=== PATIENT | female | born 1960 | race Caucasian/White ===

== ENCOUNTER 2022-04-15 15:41 | Observation (INO) | payer MEDICARE, SELFPAY ==
[2022-04-15] VITALS (18 sets, daily range): BP systolic 102–162; BP diastolic 57–90; PULSE 62–94; RESP 11–29; TEMP 36.6–37.6; O2SAT 92–100; BMI 20.9
--- NOTE | 2022-04-15 | XR_ITS ---
WS: [id number] Right calcaneus, C-arm fluoroscopy, 04/15/2022 Clinical Data: orif right calcaneus, or pic Comparison: Right ankle, 04/15/2022 Findings: There are 2 orthopedic screws in the posterior right calcaneus reducing a comminuted displaced fractu re. The superior portion of the calcaneus is now aligned with the body of the calcaneus. XR/XR calcaneus RT min 2V 86610 Impression: Internal fixation of comminuted right calcaneal fracture.
--- NOTE | 2022-04-15 | SCC_ITS ---
Procedure done: Open reduction internal fixation right calcaneus CPT 49037 216 seconds of fluoroscopic guidance, for a cumulative dose of 4.8 mGy, was provided to Dr. Gifford by the radiology department. C-arm images of the RIGHT calcaneus were saved for the patient's permanent record. [facility]
--- NOTE | 2022-04-15 15:43 | XR_ITS ---
WS: [id number] Right ankle, 4 views, 04/15/2022 Clinical Data: pain/swelling Comparison: None. Findings: There is a comminuted fracture of the right calcaneus. The superior portion of the pelvis is retracte d superiorly from the inferior portion biopolar the Achilles tendon. The ankle mortise is intact. The distal tibia and fibula are unremarkable. XR/XR ankle RT min 3V* [id number] Impression: Comminuted right calcaneal fracture.
--- NOTE | 2022-04-15 15:44 | ED_ITS ---
HPI - Extremity Injury (Lower) General: Chief Complaint: Fall Stated Complaint: FALL Time Seen by Provider: 04/15/22 15:42 Source: patient Mode of arrival: ambulatory History of Present Illness: 61-year-old female presents emergency room via EMS she was standing on a countertop she slipped and fell and landed on the right foot she has an ankle deformity with swelling posteriorly and severe pain. Denies any other injuries denies striking her head denies loss of consciousness. She has not eaten since yesterday she does not take any anticoagulants no significant past medical problems no history of coronary artery disease stroke or diabetes. MD complaint: ankle injury Onset (ago): minute(s) Type of Injury: inversion Severity: moderate Relieving factors: immobilization Exacerbating factors: movement and palpation Context: fall Associated symptoms: Reports inability to bear weight and swelling; Deny numbness or tingling Other symptoms: none Review of Systems Const: Denies: fever(s), chills, body aches, change in appetite, fatigue or malaise ENMT: Denies: throat pain, ear or mastoid pain, nasal discharge or nasal congestion Card: Denies: chest pain, edema, dyspnea on exertion or orthopnea Resp: Denies: dyspnea, productive cough or non-productive cough GI: Denies: abdominal pain, nausea, vomiting, hematemesis, coffee ground emesis, diarrhea, constipation, bloating, hematochezia or melena : Denies: flank pain, difficulty voiding, dysuria, urinary frequency or urinary urgency Musc: Reports: joint pain and joint swelling Skin/Breast: Denies: rash or pruritus [facility] ED PFSH: Medical History (Updated 04/15/22 @ 16:50 by Tolu Manrique DO) No significant past medical history Surgical History (Updated 04/15/22 @ 15:46 by Tolu Manrique DO) No pertinent past surgical history Physical Exam Const: COMMON NORMALS: no acute distress GENERAL APPEARANCE: cooperative and comfortable ORIENTATION/CONSCIOUSNESS: Yes awake, Yes oriented to person, Yes oriented to place and Yes oriented to time HENMT: COMMON NORMALS: normocephalic, atraumatic and hearing grossly normal bilaterally HEAD & SCALP: normocephalic and atraumatic Resp: COMMON NORMALS: normal respiratory effort, No retractions, No use of accessory muscles and clear to auscultation bilaterally AUSCULTATION: clear to auscultation bilaterally Cardio: COMMON NORMALS: regular rate, regular rhythm and No murmurs present (Cardio) RATE: regular rate RHYTHM: regular rhythm GI: COMMON NORMALS: Soft to palpation and No hepatosplenomegaly present AUSCULTATION: Yes normoactive bowel sounds PALPATION: Yes Soft to palpation, No Tenderness to palpation present (GI), No Guarding due to palpation present (GI) and Yes No hepatosplenomegaly present Extremity: OTHER: Swelling and right ankle particularly laterally. Dorsalis pedis posterior tibialis pulses present normal sensation normal. Neuro: SENSORIUM/ORIENTATION: Yes oriented to person, Yes oriented to place and Yes oriented to time Skin: COMMON NORMALS: no rashes or lesions noted GENERAL SKIN EXAM: no rashes or lesions noted Course Vital Signs: Vital signs: Vital Signs Pulse Rate 75 04/15/22 15:43 Respiratory Rate 18 04/15/22 16:24 Blood Pressure 104/58 04/15/22 15:43 Pulse Oximetry 97 04/15/22 16:24 Oxygen Delivery Me thod 04/15/22 15:43 MDM - Extremity Injury (Lower) Medical Decision Making Sniffing and calcaneal fracture with distraction of the posterior fracture segment. Discussed with Dr. Palmer. He is on-call. He was transitioning off call Dr. Donahue is going to cover. Dr. Reilly's been to the department seen the patient there she has not eaten since noon and they are planning on take her to the operating room I talked Dr. Sultana who will admit the patient. Medical Records I reviewed the patient's medical records. Lab Data I reviewed the patient's lab results. Radiology Impressions Ankle X-Ray 04/15/22 15:43 Impression: Comminuted right calcaneal fracture. Discharge Plan Discharge Patient Disposition: Admitted As Inpatient Clinical Impression: Calcaneal fracture Condition: Stable Prescriptions: No Action No Known Home Medications Coding Level of Care Code ED Choir Accompanist for Chg Fwd Exam Detailed
[2022-04-15] MEDS: promethazine 25 mg/mL SDV 1 mL IM (16:04)
[2022-04-15] MEDS: morphine 4 mg/mL SDV 1 mL 6 MG IVP (16:04)
[2022-04-15] MEDS: midazolam 1 mg/mL INJ 2 mL IVP (16:24)
[2022-04-15] MEDS: morphine 4 mg/mL SDV 1 mL IVP (16:24)
[2022-04-15] MEDS: orphenadrine 30 mg/mL Inj 2 mL 60 MG IVP (16:25)
--- NOTE | 2022-04-15 16:27 | P.HP_ITS ---
Providers/Chief Complaint Chief Complaint: FALL History of Present Illness Valeria Eduardo is a 61 year old female with no significant PMH was after she experinced a fall at home, according to the patient she slipped from the kitchen countertop and landed on floor,it appears to be a mechanical fall,she denied any headache, dizziness, chest pain, sob,prior to the episode. Xray rt ankle done in the ER showed : Comminuted right calcaneal fracture Her vitals have been been reviewed. Labs are pending Currently she is going to OR for intervention. Review of Systems General: Reports: 10 or more systems reviewed and unremarkable except in HPI and below Const: Denies: fever(s), chills, body aches, change in appetite or diaphoresis Card: Denies: palpitations, edema, swelling of feet/ankles, dyspnea on exertion, orthopnea or leg pain with exertion Resp: Denies: dyspnea, productive cough, wheezing or pain on inspiration GI: Denies: abdominal pain, nausea, vomiting, diarrhea or constipation : Denies: flank pain Musc: Reports: extremity pain and extremity swelling; Denies: back pain Neuro: Reports: difficulty walking; Denies: headache(s) or confusion Medications/Allergies Home Medications Medication Instructions Recorded Confirmed Last Taken Type alprazolam 0.5 mg tablet 0.5 mg PO DAILY PRN Anxiety 04/15/22 04/15/22 Unknown History gabapentin 800 mg tablet 800 mg PO TID 04/15/22 04/15/22 Unknown History venlafaxine 75 mg capsule,extended 75 mg PO BID 04/15/22 04/15/22 Unknown History release 24 hr hydrocodone 7.5 mg-acetaminophen 1 tab PO Q8H PRN pain 7 days #21 04/16/22 Unknown Rx 325 mg tablet tabs Allergies Allergy/AdvReac Type Severity Reaction Status Date / Time amoxicillin Allergy ALGY-Anaphy Verified 04/15/22 18:01 laxis clindamycin Allergy ADR-Diarrhe Verified 04/15/22 18:01 a Penicillins Allergy ALGY-Anaphy Verified 04/15/22 18:01 laxis PFSH Acute PFSH: Medical History (Updated 04/15/22 @ 17:11 by Tray Gifford DPM) No significant past medical history Surgical History (Updated 04/15/22 @ 15:46 by Tolu Manrique DO) No pertinent past surgical history Vitals/I&O/Wt Last Vital Signs Pulse 75 04/15/22 15:43 Resp 18 04/15/22 16:24 BP 104/58 04/15/22 15:43 Pulse Ox 97 04/15/22 16:24 O2 Del Method 04/15/22 15:43 Weight last 48 hrs Weight 61.235 kg Physical Exam Const: COMMON NORMALS: patient oriented x3 HENMT: COMMON NORMALS: normocephalic and atraumatic HEAD & SCALP: normocephalic and atraumatic Resp: COMMON NORMALS: clear to auscultation bilaterally AUSCULTATION: clear to auscultation bilaterally Cardio: COMMON NORMALS: regular rate, regular rhythm, S1 normal heart sound present, S2 normal heart sound present, No gallops present (Cardio), No murmurs present (Cardio), No rub (Cardio) and Peripheral pulses 2+ throughout RATE: regular rate RHYTHM: regular rhythm HEART SOUNDS: S1 normal heart sound present and S2 normal heart sound present PERIPHERAL PULSES: Peripheral pulses 2+ throughout GI: COMMON NORMALS: Normal to inspection, nondistended, normoactive bowel sounds present, Soft to palpation, non-tender, No hepatosplenomegaly present and no masses AUSCULTATION: Yes normoactive bowel sounds PALPATION: Yes Soft to palpation and Yes No hepatosplenomegaly present RECTAL EXAM: deferred Extremity: COMMON NORMALS: no clubbing, cyanosis or edema and no pedal edema Neuro: COMMON NORMALS: patient oriented x3 Data : 04/16/22 02:45 04/16/22 02:45 A&P Assessment and plan (1) Closed right calcaneal fracture: Plan Valeria Eduardo is a 61 year old female with no significant PMH was after she experinced a fall at home, according to the patient she slipped from the kitchen countertop and landed on floor,it appears to be a mechanical fall,she denied any headache, dizziness, chest pain, sob,prior to the episode. Assesment : Closed RT Calcaneal Fracture Plan : Pain Control Bowel Regimen DVT PPX: On lovenox as well as SCDS Code Status :Full code Attestations Medical Necessity Statement*: Patient needs to be in hospital for the management of calcaneal fracture. Anticipated LOS Greater then 2 midnights. Coding Level of Care Code Acute Afloat Cryptologic Manager for g Fwd Exam Detailed Diagnoses Closed right calcaneal fracture S92.001A
--- NOTE | 2022-04-15 16:46 | ECG_ITS ---
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 Measurements Intervals [place] Rate: 84 P: 75 IL: 144 QRS: 76 QRSD: 86 T: 68 QT: 367 QTc: 436 Interpretive Statements SINUS RHYTHM POSSIBLE LEFT ATRIAL ENLARGEMENT [-0.1mV P-WAVE IN V1/V2] No previous ECG available for comparison Electronically Signed On 04-16-2022 5:27:33 HIGH LIFT OPERATOR by Emy Guerra M.D. [email or web address] memorial [email or web address] [id number]
--- NOTE | 2022-04-15 17:06 | P.CONIM_ITS ---
Providers/Reason For Consult Consulting Physician/Specialty*: Podiatry Reason for Consult*: Right foot calcaneus tongue type fracture Attending Physician: Dr. Tray Gifford, D.P.M. History of Present Illness History of Present Illness Valeria Eduardo is a 61 year old female who presented to the emergency department this afternoon after sustaining a fall from her countertop. Patient standing on the countertop when she slipped and fell. When she landed she had immediate onset of pain to the right ankle and heel. She was transported to the emergency department via EMS where x-rays were obtained and she was found to have a right calcaneus tongue type fracture. Podiatry was consulted for further treatment and evaluation. History is obtained through chart review as patient had received pain medication in the emergency department which inhibited history taking from the patient. Patient is not on any blood thinners. She does not take any regular NSAIDs. No constitutional symptoms. No other pedal complaints at this time. Review of Systems General: Reports: 10 or more systems reviewed and unremarkable except in HPI and below Const: Denies: fever(s), chills or fatigue Eyes: Denies: change in vision ENMT: Denies: sinus pain Card: Denies: chest pain, palpitations or lightheadedness Resp: Denies: dyspnea GI: Denies: abdominal pain, nausea or vomiting Musc: Reports: extremity pain, extremity swelling and limited range of motion; Denies: neck pain or back pain Skin/Breast: Reports: skin swelling Neuro: Denies: numbness in extremities Medications/Allergies Home Medications Medication Instructions Recorded Confirmed Last Taken Type alprazolam 0.5 mg tablet 0.5 mg PO DAILY PRN Anxiety 04/15/22 04/15/22 Unknown History gabapentin 800 mg tablet 800 mg PO TID 04/15/22 04/15/22 Unknown History venlafaxine 75 mg capsule,extended 75 mg PO BID 04/15/22 04/15/22 Unknown History release 24 hr Allergies Allergy/AdvReac Type Severity Reaction Status Date / Time amoxicillin Allergy ALGY-Anaphy Verified 04/15/22 18:01 laxis clindamycin Allergy ADR-Diarrhe Verified 04/15/22 18:01 a Penicillins Allergy ALGY-Anaphy Verified 04/15/22 18:01 laxis PFSH Acute PFSH: Medical History (Updated 04/15/22 @ 17:11 by Tray Gifford DPM) No significant past medical history Surgical History (Updated 04/15/22 @ 15:46 by Tolu Manrique DO) No pertinent past surgical history Vitals/I&O/Wt Last Vital Signs Pulse 75 04/15/22 15:43 Resp 18 04/15/22 16:24 BP 104/58 04/15/22 15:43 Pulse Ox 97 04/15/22 16:24 O2 Del Method 04/15/22 15:43 Weight last 48 hrs Weight 135 lb Physical Exam Narrative: GENERAL: A&O x 3 VASCULAR: DP/PT pulses palpable 2/4 with CFT intact, <3seconds to distal digits. Blanching posterior right heel with tenting of the skin noted from posterior calcaneus fragment DERMATOLOGICAL: Skin turgor and temperature is within normal limits. Right posterior calcaneus shows centralized area of blanching and tenting of the skin from posterior calcaneal fragment MUSCULOSKELETAL: Exquisite tenderness with palpation of right posterior heel. Muscle strength testing deferred secondary to posttraumatic state. Visible ten ting of the posterior heel of the right foot NEUROLOGICAL: Neurological sensation to the affected foot and ankle is present through L4-S1 dermatomes with no hyper/hypoesthesias, negative Tinel or Amna leix's sign IMAGIN 3 view x-rays of the right ankle and Calc axial view of the right calcaneus were taken in the emergency department and personally interpreted by me which show tongue type calcaneal fracture which is tenting the posterior skin envelope. 2 cm displacement of superior calcaneal fragment. No other fractures or dislocations noted Resp: COMMON NORMALS: normal respiratory effort and clear to auscultation bilaterally AUSCULTATION: clear to auscultation bilaterally Cardio: COMMON NORMALS: regular rate, regular rhythm, S1 normal heart sound present and S2 normal heart sound present RATE: regular rate RHYTHM: regular rhythm HEART SOUNDS: S1 normal heart sound present and S2 normal heart sound present A&P Assessment and plan (1) Closed right calcaneal fracture: (2) Pain of right foot: Plan -Patient was seen and evaluated in the emergency department -Right foot tongue type calcaneal fracture with tenting of the skin and soft tissue compromise -Labs and vitals reviewed -Diet: N.p.o. for procedure -Plan for right calcaneus open reduction internal fixation for this evening 04/15/2022 -Patient will be staying overnight as inpatient with likely discharge tomorrow morning -Strict nonweightbearing to right lower extremity using crutches/walker -Patient will need crutches prior to discharge -Podiatry will round on patient tomorrow morning to assess postoperative status and provide further recommendations for discharge Coding Level of Care Code Acute Orange Picking Supervisor for Jennifer Fwd Exam Expanded Problem Focused Diagnoses Closed right calcaneal fracture S92.001A Pain of right foot M79.671
[2022-04-15] MEDS: sodium chloride 0.9% 1,000 ML 30 ML IV (18:33)
--- NOTE | 2022-04-15 18:35 | PC.NURSE ---
DR. STEELE NOTIFIED OF HOLDING LOVENOX INJECTION UNTIL AFTER SURGERY
[2022-04-15] MEDS: vancomycin 1,000 MG in sodium chloride 0.9% 250 ML 250 MG IV (19:10)
--- NOTE | 2022-04-15 19:19 | ANES.PREANE2 ---
Pre-Anesthetic Assessment Height/Weight: Height 1.68 m Weight 58.967 kg Temp Pulse Resp BP Pulse Ox O2 Del Method 99.6 F 81 17 148/80 92 04/15/22 17:58 04/15/22 17:58 04/15/22 17:58 04/15/22 17:58 04/15/22 17:58 04/15/22 18:04 Operation Date: 04/15/22 19:00 Proposed Procedures p ORIF Calcaneous(Right) - Tray Gifford DPM Familial anesthetic complications: none Was Beta James taken within 24 hours: N/A Was Clonidine taken within 24 hours: N/A Last intake: Intake Last Liquid Date 04/14/22 Last Liquid Time 18:00 Last Solid Date 04/14/22 Last Solid Time 18:00 Social No alcohol and No tobacco Exam alert, oriented x 3, clear to auscultation bilaterally and regular rate & rhythm Airway Submandibular: within normal limits Cervical ROM: within normal limits Mallampati: Class II Dentition: caps Neuropsych Anxiety and Depression Anesthetic Plan ASA status: 2E Anesthesia: General and Regional (specify below) (right pop blk) Medications/Allergies Home Medications Medication Instructions Recorded Confirmed Last Taken Type alprazolam 0.5 mg tablet 0.5 mg PO DAILY PRN Anxiety 04/15/22 04/15/22 Unknown History gabapentin 800 mg tablet 800 mg PO TID 04/15/22 04/15/22 Unknown History venlafaxine 75 mg capsule,extended 75 mg PO BID 04/15/22 04/15/22 Unknown History release 24 hr Allergies Allergy/AdvReac Type Severity Reaction Status Date / Time amoxicillin Allergy ALGY-Anaphy Verified 04/15/22 18:01 laxis clindamycin Allergy ADR-Diarrhe Verified 04/15/22 18:01 a Penicillins Allergy ALGY-Anaphy Verified 04/15/22 18:01 laxis Current Medications Generic Name Dose Route Start Last Admin Trade Name Freq PRN Reason Stop Dose Admin Sodium Chloride 1,000 mls @ 30 mls/hr 04/15/22 18:30 04/15/22 18:33 Sodium Chloride 0.9% IV 04/16/22 18:29 30 mls/hr .Q24H YAYA Administration PFSH Anesthesia Medical History (Updated 04/15/22 @ 17:11 by Tray Gifford DPM) No significant past medical history Surgical History (Updated 04/15/22 @ 15:46 by Tolu Manrique DO) No pertinent past surgical history Data Anesthesia Cardiac Studies: No Data to Display Anesthesia Procedures Nerve Block Nerve Block 1: Main Anesthesia: general anesthesia Time Out Performed: Yes Consent: requested by attending/covering physician, from patient, risks and benefits reviewed and patient agrees to proceed Nerve block location: popliteal (right) Anesthesia monitors applied: pulse oximetry, EKG, BP cuff and oxygen Nerve block position: supine Anesthetic Used: ropivicaine 0.5% Amount of anesthesia used (mL): 30 Ultrasound used to: recognize landmarks Nerve Stimulator Used?: No Interscalene/Femoral BLK: 4 stimuplex 21 g needle used for position and inplane approach Injection: neg aspiration of heme Patient Tolerated Procedure: well Complications: none
--- NOTE | 2022-04-15 20:48 | PM.OP ---
Operative Report Date of procedure: April 15, 2022 Pre-op diagnosis: Right closed calcaneus fracture Post-op diagnosis: Same Post-op findings: Right close calcaneus fracture with soft tissue compromise of posterior heel, skin tenting from posterior calcaneal fragment. Hyperemic response to posterior heel after reduction and fixation Procedure done: Open reduction internal fixation right calcaneus CPT 14420 Implants: Two 4.0 short threaded cannulated screws with washers from [employer] ANSIS III system Specimens removed/disposition: None Pathology: None Surgeon: Dr. Tray Gifford, D.P.M. Estimated blood loss: 10 cc No tourniquet used Complications: None Findings: See above Brief History: Patient sustained a right foot closed extra-articular calcaneal fracture today 04/15/2022. She presented to the emergency department for evaluation. Podiatry was consulted. Procedure: Patient is a 61-year-old female that has a history of closed right calcaneal extra-articular fracture. The patient sustained the injury today 04/15/2022. The extent of the injury requires open reduction internal fixation. A lengthy discussion regarding the procedure, including risks and complications has been had with the patient. Written and verbal consent have been obtained. All patient questions have been answered to the patient?s satisfaction. No written or verbal guarantees have been given or implied. The patient has been NPO since midnight. The history has been reviewed and the history and physical is current. The signed consent was confirmed and placed in the patient chart. Patient imaging has been reviewed and is consistent with thediagnosis. Under mild sedation, the patient was brought into the operating room and placed on the table in the prone position. IV antibiotics were given by the anesthesia team as preoperative surgical prophylaxis. General sedation was then performed by the anesthesia team. A popliteal block to the right lower extremity was performed by the anesthesia department. After prep of the right lower extremity, the following procedure was then performed. Attention was directed to the posterior aspect of the right heel where there was noted to be centralized blanching from the displaced calcaneal fragment. A #15 blade was used to make an incision lateral to the Achilles tendon. Dissection was carried down through subcutaneous and superficial fascia bluntly with a hemostat. Upon arriving to the dorsal aspect of the calcaneus, a [id number] reduction clamp was used to reduce the fracture. A stab incision was made on the plantar aspect of the calcaneus for one of the arms of the [id number] reduction clamp. Under C-arm fluoroscopy, reduction was noted to be achieved and the calcaneus was positioned in an anatomically appropriate position. With the calcaneus in the appropriate position, 2 guidewires for the 4.0 cannulated short thread headed screws were driven perpendicular across the fracture line. Good positioning of these wires was noted on lateral and Calc axial views intraoperatively. Next, the 4.0 cannulated short thread headed screws with washers were inserted over the wires across the fracture site. Good compression was noted across fracture site. Good position of the screws was noted on lateral and calcaneal axial views. The wires were removed and the fracture site was stressed under C-arm fluoroscopy. The ankle was dorsiflexed under fluoroscopy and the internal fixation was noted to be stable and maintaining integrity. The incision sites were then irrigated with copious muscle sterile saline before attention was directed to closure. Hyperemic response to the central area of blanching from the posterior dislocation of the calcaneus was noted after reduction and internal fixation. Skin closure was performed with 4-0 nylon in horizontal mattress fashion. Incision site was dressed with Xeroform 4 x 4 gauze Kerlix before the right lower extremity was placed in a well-padded below the knee posterior splint. The patient tolerated the procedure and anesthesia well and without complication. The patient was transported from the operating room to the recovery room with vital signs stable and vascular status intact to all digits of the right foot foot. The patient was instructed to remain strict nonweightbearing to the operative extremity, to keep surgical dressing clean, dry and intact. The patient will be transferred back to the floor once anesthesia criteria is met. I will continue to round on and follow the patient in the inpatient setting and provide recommendations for discharge. Patient will be okay for diet after arriving to the floor. She is to remain strict nonweightbearing to the right lower extremity. Anticipate discharge home tomorrow 04/16/2022.
--- NOTE | 2022-04-15 20:59 | SUR.PHASEI ---
2046 PT TO PACU 5 HOB AT 30 DEGREES, MONITOR SR WITH NO ECTOPY NOTED, IV TO LT AC #18 WITH NS 200 ML UP AT KVO RATE PER GRAVITY, RT AC WITH #20 PIID, ID BANDS TO RT WRIST, PT ID'D WITH 2 IDENTIFIERS, PT RT LOWER LEG AND FOOT IN SPLINT WITH FEET ELEVATED PER BED DISTAL TOES PINK WARM WITH CAP REFILL LESS THAN 3 SECONDS,PT SLEEPS IF NOT DISTURBED PT AWAKES TO TOUCH, PT COUGHS TO COMMAND , STATES NO TO QUESTIONS OF PAIN, QUCKLY BACK TO SLEEP WITH GOOD RESP EFFORT NOTED. 2105 PT AWAKES TO TOUCH, KNOWS NAME AND STATES SHE IS IN THE HOSPITAL , DOES NOT KNOW TOWN, PT QUICKLY BACK TO SLEEPS WITH SNORING RESPIRATIONS, SATS 100% ON 3LNC. DISTAL RT FOOT UNCHANGED MONITOR SR WITH NO ECTOPY NOTED.
--- NOTE | 2022-04-15 21:12 | SUR.PHASEI ---
PT AWAKES TO TOUCH, STILL REMAINS VERY SLEEPY PT QUCIKLY BACK TO SLEEP UNABLE TO MOVE RT TOES TO COMMAND, PT HAD POPLITEAL BLOCK PLACED PRE SURGURY,
--- NOTE | 2022-04-15 21:25 | ANE.PACU2 ---
Inpatient post-anesthesia follow up: Airway intact: Yes Vital signs: Temperature 98.3 F Pulse Rate 89 Respiratory Rate 16 Blood Pressure 145/81 Pulse Oximetry 100 Oxygen Delivery Me thod [ Nasal Cannula Current Rate & Del justino] Oxygen Delivery Me thod Nasal Cannula Oxygen Flow Rate [ Current Rate 3 & Delivery] Oxygen Flow Rate 3 Fraction of Inspir ed Oxygen Hydration adequate: Yes Nausea and vomiting: No Pain level: 1 Mental status: Baseline
--- NOTE | 2022-04-15 21:45 | SUR.PHASEI ---
PT TO ROOM 264 PER CART PT AWAKES MOVES SELF TO BED PT TALKATIVE WITH NURSE ELIZABETH JASON AT BEDSIDE, NO CHANGES TO RT FOOT DRESSING OR DISTAL TOES.
--- NOTE | 2022-04-15 23:22 | PC.NURSE ---
Patient is lethargic from meds given in PACU and unable to complete admission at this time.
[2022-04-16] VITALS (8 sets, daily range): BP systolic 93–103; BP diastolic 52–61; PULSE 71–83; RESP 16–18; TEMP 36.8–37.3; O2SAT 94–98
[2022-04-16 03:08] LABS: Basophils % 0.1 %; Hematocrit 36.7 % (37.0-47.0); Hemoglobin 11.9 g/dL (11.5-15.3); Lymphocytes # 0.7 10^3/uL (0.8-4.8); Lymphocytes % 9.6 %; Mean Corpuscular HGB Conc 32.4 g/dL (30.0-36.0); Mean Corpuscular Hemoglobin 30.7 pg (28.0-34.0); Mean Corpuscular Volume 94.6 fl (81-99); Monocytes # 0.5 10^3/uL (0.2-0.9); Monocytes % 6.7 %; Neutrophils # 6.08 10^3/uL (1.8-7.7); Neutrophils % 83.3 %; Nucleated Red Blood Cells % 0 %; Platelet Count 191 10^3/cmm (130-400); Red Blood Count 3.88 10^6/uL (4.1-5.3); Red Cell Distribution Width 13.3 % (12.1-15.1); White Blood Count 7.3 10^3/uL (4.0-10.0)
[2022-04-16 03:35] LABS: Anion Gap 14.1 (5-19); Blood Urea Nitrogen 11 mg/dL (8-23); Calcium 8.7 mg/dL (8.5-10.5); Carbon Dioxide 23 mmol/L (22-29); Chloride 110 mmol/L (98-107); Glucose 107 mg/dL (65-115); Osmolality Calculated 296 mOsm/kg (285-295); Potassium 4.1 mmol/L (3.5-5.1); Sodium 143 mmol/L (136-145)
--- NOTE | 2022-04-16 07:35 | PM.PN ---
Subjective Subjective: Patient is a pleasant 61-year-old female who was seen at bedside this morning. She is postop day 1 right calcaneus open reduction internal fixation. Patient states that she is feeling well this morning. She denies any overnight events. States that her pain is well controlled. She denies any other pedal complaints this time. Denies any constitutional symptoms. Patient states that she is from [facility]. She is wondering when she will be able to go back there. I discussed that we will see her at her next week's follow-up appointment and make recommendations from there. Otherwise, the patient is doing well at bedside this morning. Vitals/I&O/Wt Last Vital Signs Temp 98.3 F 04/16/22 04:40 Pulse 83 04/16/22 04:40 Resp 16 04/16/22 04:40 BP 93/52 04/16/22 04:40 Pulse Ox 94 04/16/22 04:40 O2 Del Method 04/16/22 04:40 O2 Flow Rate 1 04/16/22 00:00 04/15/22 04/16/22 04/16/22 22:59 06:59 14:59 Intake Total 1250 / 1250 Output Total Balance 1240 / 1240 Weight last 48 hrs Weight 130 lb Weight 135 lb Physical Exam Narrative: GENERAL: A&O x 3 VASCULAR: Surgical dressing intact to right lower extremity. Capillary refill time intact to distal digits less than 3 seconds DERMATOLOGICAL: Surgical dressing and posterior splint to right lower extremity with no strikethrough noted MUSCULOSKELETAL: Deferred secondary to postsurgical state NEUROLOGICAL: Diminished sensation to distal digits but unable to observe secondary to patient receiving regional anesthesia that has not worn off. Data : 04/16/22 02:45 04/16/22 02:45 A&P Assessment and plan (1) Closed right calcaneal fracture: (2) Pain of right foot: Plan -Patient was seen and evaluated at bedside this morning -Day 1 status post right calcaneus open reduction internal fixation DOS: 04/15/2022 -No further surgical intervention per podiatry -Strict nonweightbearing to the right lower extremity -Surgical dressing left intact. Patient is to keep dressing clean, dry, intact until follow-up. -Appreciate rec's from case management for discharge as patient will need crutches and/or walker for nonweightbearing to the right lower extremity -Prescription for [place] 7.5?325 was sent to patient pharmacy for outpatient pain management. She can pick this up after discharge from the hospital -Patient is okay to discharge from a podiatry standpoint -Patient will follow up with Dr. Gifford at her scheduled appointment next week Attestations Medical Necessity Statement*: See above Coding Level of Care Code Acute [employer] for [facility] Fwd Diagnoses Closed right calcaneal fracture S92.001A Pain of right foot M79.677
[2022-04-16] MEDS: enoxaparin 40 mg/0.4 mL Syringe SUBCUT (09:21)
[2022-04-16] MEDS: morphine 4 mg/mL SDV 1 mL 2 MG IVP (10:57)
--- NOTE | 2022-04-16 16:47 | P.DS_ITS ---
Discharge Providers Date of Admission: 04/15/22 16:19 Date of Discharge: April 16, 2022 Attending Provider at Admission: Augie Sultana MD Attending Provider at Discharge: Augie Sultana MD Diagnoses at Discharge Discharge Diagnosis (1) Closed right calcaneal fracture: Status: Acute Reason for Visit Reason for Visit: FALL Hospital Course Hospital Course Valeria Eduardo is a 61 year old female with no significant PMH was after she experinced a fall at home, according to the patient she slipped from the kitchen countertop and landed on floor,it appears to be a mechanical fall,she denied any headache, dizziness, chest pain, sob,prior to the episode. Xray rt ankle done in the ER showed :??Comminuted right calcaneal fracture, status post Open reduction internal fixation right calcaneus. Podiatry was on board. Patient was discharged on pain medication. She will follow podiatry in a week. Physical Exam Const: COMMON NORMALS: patient oriented x3 HENMT: COMMON NORMALS: normocephalic and atraumatic HEAD & SCALP: normocephalic and atraumatic Resp: COMMON NORMALS: clear to auscultation bilaterally AUSCULTATION: clear to auscultation bilaterally Cardio: COMMON NORMALS: regular rate, regular rhythm, S1 normal heart sound present, S2 normal heart sound present, No gallops present (Cardio), No murmurs present (Cardio), No rub (Cardio) and Peripheral pulses 2+ throughout RATE: regular rate RHYTHM: regular rhythm HEART SOUNDS: S1 normal heart sound present and S2 normal heart sound present PERIPHERAL PULSES: Peripheral pulses 2+ throughout GI: COMMON NORMALS: Normal to inspection, nondistended, normoactive bowel sounds present, Soft to palpation, non-tender, No hepatosplenomegaly present and no masses AUSCULTATION: Yes normoactive bowel sounds PALPATION: Yes Soft to palpation and Yes No hepatosplenomegaly present RECTAL EXAM: deferred Extremity: COMMON NORMALS: no clubbing, cyanosis or edema and no pedal edema Neuro: COMMON NORMALS: patient oriented x3 Discharge Data Studies Completed and Pending Completed Studies During Hospitalization Category Date Time Status XR ankle RT min 3V* [id number] Stat Exams 04/15/22 15:43 Completed XR calcaneus RT min 2V [id number] Routine Exams 04/15/22 Completed Pending at discharge Category Date Time Status C-arm Mini [id number] Routine Exams 04/15/22 19:28 Taken Radiology Impressions Calcaneus X-Ray 04/15/22 00:00 Impression: Internal fixation of comminuted right calcaneal fracture. Ankle X-Ray 04/15/22 15:43 Impression: Comminuted right calcaneal fracture. Laboratory Results WBC 7.3 10^3/uL (4.0-10.0) 04/16/22 02:45 RBC 3.88 10^6/uL (4.1-5.3) L 04/16/22 02:45 Hgb 11.9 g/dL (11.5-15.3) 04/16/22 02:45 Hct 36.7 % (37.0-47.0) L 04/16/22 02:45 MCV 94.6 fl (81-99) 04/16/22 02:45 MCH 30.7 pg (28.0-34.0) 04/16/22 02:45 MCHC 32.4 g/dL (30.0-36.0) 04/16/22 02:45 RDW 13.3 % (12.1-15.1) 04/16/22 02:45 Plt Count 191 10^3/cmm (130-400) 04/16/22 02:45 MPV 10.0 fL (7.4-10.4) 04/16/22 02:45 Neut % (Auto) 83.3 % 04/16/22 02:45 Lymph % (Auto) 9.6 % 04/16/22 02:45 [place] % (Auto) 6.7 % 04/16/22 02:45 Eos % (Auto) 0.0 % 04/16/22 02:45 Baso % (Auto) 0.1 % 04/16/22 02:45 Neut # (Auto) 6.08 10^3/uL (1.8-7.7) 04/16/22 02:45 Lymph # (Auto) 0.7 10^3/uL (0.8-4.8) L 04/16/22 02:45 [place] # (Auto) 0.5 10^3/uL (0.2-0.9) 04/16/22 02:45 Eos # (Auto) 0.0 10^3/uL (0.0-0.8) 04/16/22 02:45 Baso # (Auto) 0.0 10^3/uL (0.0-0.1) 04/16/22 02:45 Nucleated RBC % (auto) 0 % 04/16/22 02:45 Nucleated RBCs # 0.0 /100WBC 04/16/22 02:45 Sodium 143 mmol/L (136-145) 04/16/22 02:45 Potassium 4.1 mmol/L (3.5-5.1) 04/16/22 02:45 Chloride 110 mmol/L (98-107) H 04/16/22 02:45 Carbon Dioxide 23 mmol/L (22-29) 04/16/22 02:45 Anion Gap 14.1 (5-19) 04/16/22 02:45 BUN 11 mg/dL (8-23) 04/16/22 02:45 Creatinine 0.6 mg/dL (0.5-0.9) 04/16/22 02:45 GFR Calculation 101.0 mL/min (90-130) 04/16/22 02:45 Glucose 107 mg/dL (65-115) 04/16/22 02:45 Calculated Osmolality 296 mOsm/kg (285-295) H 04/16/22 02:45 Calcium 8.7 mg/dL (8.5-10.5) 04/16/22 02:45 Magnesium 2.0 mg/dL (1.7-2.3) 04/16/22 02:45 Vitals Last Vital Signs Temp 98.3 F 04/16/22 11:24 Pulse 78 04/16/22 11:24 Resp 16 04/16/22 11:24 BP 103/61 04/16/22 11:24 Pulse Ox 98 04/16/22 11:24 O2 Del Method 04/16/22 11:12 O2 Flow Rate 1 04/16/22 00:00 Discharge Plan Discharge Patient Disposition: Home Condition: Stable Prescriptions: New hydrocodone-acetaminophen 7.5-325 mg tablet 1 tab PO Q8H PRN (Reason: pain) 7 Days Qty: 21 0RF Rx Instructions: Take one tablet by mouth every 8 hours as needed for pain Continued venlafaxine 75 mg capsule,extended release 24hr 75 mg PO BID alprazolam 0.5 mg tablet 0.5 mg PO DAILY PRN (Reason: Anxiety) gabapentin 800 mg tablet 800 mg PO TID Discharge Orders: Discharge Order (Routine); Ordered 04/16/22 Ordered By: Augie Sultana Other Ambulatory Orders: DME: Walker (Order) Location: None Selected Ordered By: Tray Gifford DME: Walker (Order) Location: None Selected Ordered By: Augie Sultana Referrals: Tray Gifford DPM [Physician] - 04/23/22 8:00 am Patient Instructions: Hydrocodone/Acetaminophen (By mouth) (Vicodin, [place], Lortab), How to Choose and Use a Walker (GEN), ORIF of an Ankle Fracture (GEN), Opioid Safety Discharge Attestations Time Spent in Discharge Care*: less than 30 min Quality Metrics Clinical Quality Measures [ No reported AMI, CVA or VTE this stay] Coding Level of Care Code Acute [facility] note Diagnoses Closed right calcaneal fracture S92.001A
== END 2022-04-16 11:25 | disposition home or self-care (01) ==
LOC: ER 16:50 → MEDSURG 22:03
PROVIDERS: Podiatrist Foot & Ankle Surgery; Admitting Provider Internal Medicine; Emergency Provider Family Medicine; Visit Provider Internal Medicine
PROC: (CPT 28415; principal; 2022-04-15 19:00)
DX: S92.001A Unspecified fracture of right calcaneus, initial encounter for closed fracture (principal); W17.89XA Other fall from one level to another, initial encounter; I49.8 Other specified cardiac arrhythmias
CPT/HCPCS: 28415; 36415; 73610; 73650; 76000; 80048; 83735; 85025; 93005; 96372; 96374; 96375; 97161; 97530; 99285; C1713; G0378; J0330; J1100; J1650; J2250; J2270; J2360; J2405; J2550; J2704; J2710; J2795; J3010; J3370; J3490; J7030; J7050

== ENCOUNTER → 2022-04-23 13:06 | Outpatient (BNVA) | payer MEDICARE, SELFPAY | PROVIDERS: Visit Provider Podiatrist Foot & Ankle Surgery | DX: Z09 Encounter for follow-up examination after completed treatment for conditions other than malignant neoplasm (principal); R23.8 Other skin changes | CPT/HCPCS: 99024 ==

== ENCOUNTER → 2022-04-28 12:59 | Outpatient (BNVA) | payer MEDICARE, SELFPAY | PROVIDERS: Visit Provider Podiatrist Foot & Ankle Surgery | DX: Z98.890 Other specified postprocedural states (principal); R23.8 Other skin changes; S92.001A Unspecified fracture of right calcaneus, initial encounter for closed fracture; X58.XXXA Exposure to other specified factors, initial encounter | CPT/HCPCS: 73650; 99024; A6222 ==

== ENCOUNTER 2022-04-28 15:30 | Outpatient (CLI) | payer MEDICARE, SELFPAY | END 2022-04-28 15:31 | disposition home or self-care (01) | LOC: SPT 15:31 | PROVIDERS: Visit Provider Podiatrist Foot & Ankle Surgery | DX: Z46.89 Encounter for fitting and adjustment of other specified devices (principal); M79.671 Pain in right foot | CPT/HCPCS: 97760; L4361 ==

== ENCOUNTER → 2022-05-08 13:42 | Outpatient (BNVA) | payer MEDICARE, SELFPAY | PROVIDERS: Visit Provider Podiatrist Foot & Ankle Surgery | DX: S92.001A Unspecified fracture of right calcaneus, initial encounter for closed fracture (principal); Z98.890 Other specified postprocedural states; X58.XXXA Exposure to other specified factors, initial encounter | CPT/HCPCS: 73650; 99024 ==

== ENCOUNTER → 2022-05-22 10:58 | Outpatient (BNVA) | payer MEDICARE, SELFPAY | PROVIDERS: Visit Provider Podiatrist Foot & Ankle Surgery | DX: Z98.890 Other specified postprocedural states (principal); X58.XXXA Exposure to other specified factors, initial encounter; S92.001A Unspecified fracture of right calcaneus, initial encounter for closed fracture | CPT/HCPCS: 73650; 99024 ==

== ENCOUNTER → 2022-06-05 10:43 | Outpatient (BNVA) | payer MEDICARE, SELFPAY | PROVIDERS: Visit Provider Podiatrist Foot & Ankle Surgery | DX: Z98.890 Other specified postprocedural states (principal); X58.XXXA Exposure to other specified factors, initial encounter; S92.001A Unspecified fracture of right calcaneus, initial encounter for closed fracture | CPT/HCPCS: 73650; 99024; 99213 ==

== ENCOUNTER → 2022-06-12 13:44 | Outpatient (BNVA) | payer MEDICARE, SELFPAY | PROVIDERS: Visit Provider Podiatrist Foot & Ankle Surgery | DX: Z98.890 Other specified postprocedural states (principal); S92.001A Unspecified fracture of right calcaneus, initial encounter for closed fracture; X58.XXXA Exposure to other specified factors, initial encounter | CPT/HCPCS: 99024 ==